=== PATIENT | female | born 2000 | race Caucasian/White ===

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

== ENCOUNTER 2019-09-27 16:54 | Emergency (ER) | payer BC ==
[2019-09-27 17:01] VITALS: BP 126/68
== END 2019-09-27 18:07 | disposition left against medical advice (07) ==
LOC: ED 16:54
DX: N91.2 Amenorrhea, unspecified (principal); Z53.21 Procedure and treatment not carried out due to patient leaving prior to being seen by health care provider

== ENCOUNTER 2020-05-10 05:52 | Inpatient (IN) ==
[2020-05-10 06:24] LABS: Urine Appearance Turbid; Urine Bilirubin Negative (Negative); Urine Blood 3+ (Negative); Urine Color Yellow; Urine Glucose Negative (Negative); Urine Ketones Negative (Negative); Urine Nitrite Negative (Negative); Urine Protein 1+(30 mg/dL) (Negative); Urine Specific Gravity 1.009 (1.010-1.030); Urine Urobilinogen Negative (Negative)
[2020-05-10 06:32] LABS: Urine Bacteria 1+ (Absent); Urine Red Blood Cell 3+(>10/hpf) (Absent); Urine Squamous Epithelial Cell Present (Absent); Urine White Blood Cell 3+(>20/hpf) (Absent)
[2020-05-10] MEDS ORDERED: Lidocaine 1% MPF 5 ML VIAL ONE (06:56)
[2020-05-10] MEDS ORDERED: Lactated Ringers 1000 ml BAG 1,000 ML IV SCH (08:00)
[2020-05-10] MEDS ORDERED: Morphine 10 MG/ML VIAL (1 ml) IV ONE ×3 (08:57→19:28)
[2020-05-10] MEDS ORDERED: Promethazine INJ(RESTRICTED) 25 MG/ML 1 ml VIAL IV ONE ×2 (09:03→19:29)
[2020-05-11 08:10] LABS: Hematocrit 35 % (35-47); Mean Corpuscular HGB Conc 35 g/dL (31-36); Mean Corpuscular Hemoglobin 33 pg (27-31); Mean Corpuscular Volume 94 fL (80-97); Mean Platelet Volume 9.8 fL (7.4-10.4); Platelet Count 249 10^3/uL (150-450); Red Blood Count 3.68 10^6 /uL (3.70-4.87); Red Cell Distribution Width 13 % (10-15); White Blood Count 20.1 10^3/uL (3.5-10.8)
[2020-05-11] MEDS ORDERED: OBEPIDURAL 0 ML EPIDURAL ONE (08:30)
[2020-05-11 08:54] LABS: ABS Basophils 0.1 10^3/ul (0-0.2); ABS Lymphocytes 2.5 10^3/ul (1.0-4.8); ABS Monocytes 1.2 10^3/ul (0-0.8); ABS Neutrophils 16.2 10^3/ul (1.5-7.7); Eosinophil % 0.1 %; Lymphocyte % 12.6 %; Nucleated Red Blood Cells % 0.1
[2020-05-11] MEDS ORDERED: OBEPIDURAL 250 ML EPIDURAL ONE (09:06)
[2020-05-11] MEDS ORDERED: Sodium Citrate/Citric Acid LIQ 15 ML UDC PO PRN (09:16)
[2020-05-11] MEDS ORDERED: Lactated Ringers 1000 ml BAG 500 ML IV PRN ×2 (09:16)
[2020-05-11] MEDS ORDERED: Lactated Ringers 1000 ml BAG 1,000 ML IV ONE (09:16)
[2020-05-11] MEDS ORDERED: Phenylephrine 40 mcg/mL 10mL (400mcg) SYRINGE IV PUSH PRN ×2 (09:16)
[2020-05-11] MEDS ORDERED: OBEPIDURAL 250 ML EPIDURAL SCH (10:00)
[2020-05-11] MEDS ORDERED: Lactated Ringers 1000 ml BAG 1,000 ML IV SCH ×2 (10:00)
[2020-05-11] MEDS ORDERED: Lidocaine 1% MPF 5 ML VIAL ONE (13:47)
[2020-05-11] MEDS ORDERED: Oxytocin in LR 0 UNITS/0 ML BAG IVPB ONE (20:46)
[2020-05-11] MEDS ORDERED: Dibucaine 1% OINT 28.35 GM TUBE PR PRN (21:30)
[2020-05-11] MEDS ORDERED: Witch Hazel PAD JAR TOPICAL PRN (21:30)
[2020-05-11] MEDS ORDERED: Glycerin ADULT 2.4 gm SUPP PR PRN (21:30)
[2020-05-12 07:09] LABS: Hematocrit 32 % (35-47); Hemoglobin 11.2 g/dL (12.0-16.0); Mean Corpuscular HGB Conc 35 g/dL (31-36); Mean Corpuscular Hemoglobin 33 pg (27-31); Mean Corpuscular Volume 93 fL (80-97); Mean Platelet Volume 9.4 fL (7.4-10.4); Platelet Count 264 10^3/uL (150-450); Red Blood Count 3.43 10^6 /uL (3.70-4.87); Red Cell Distribution Width 13 % (10-15)
[2020-05-12 09:05] LABS: ABS Basophils 0.1 10^3/ul (0-0.2); ABS Lymphocytes 2.3 10^3/ul (1.0-4.8); ABS Monocytes 1.1 10^3/ul (0-0.8); ABS Neutrophils 24.6 10^3/ul (1.5-7.7); Eosinophil % 0.1 %; Lymphocyte % 8.1 %
[2020-05-12] MEDS ORDERED: Lidocaine 1% VIAL 10 MG/ML VIAL ONE (19:07)
[2020-05-13 07:44] VITALS: BP 120/65
== END 2020-05-13 18:00 | disposition home or self-care (01) | DRG 560 ==
LOC: MCHOBOUT 05:52 → MCHOB 05-11 07:17
PROVIDERS: ADMIT Advanced Practice Midwife; ATTEND Midwife

== ENCOUNTER 2022-10-25 15:29 | Inpatient (IN) ==
[2022-10-25] MEDS ORDERED: Buffered Lidocaine 1% SYRIN 1 ml INTRADERM ONE (15:58)
[2022-10-25] MEDS ORDERED: Lactated Ringers 1000 ml BAG 1,000 ML IV ONE ×2 (15:58→18:03)
[2022-10-25] MEDS ORDERED: Lactated Ringers 1000 ml BAG 1,000 ML IV SCH ×3 (16:00→22:00)
[2022-10-25 16:43] LABS: ABS Basophils 0.1 10^3/ul (0-0.2); ABS Eosinophils 0.1 10^3/ul (0-0.6); ABS Lymphocytes 3.1 10^3/ul (1.0-4.8); ABS Monocytes 0.7 10^3/ul (0-0.8); ABS Neutrophils 9.5 10^3/ul (1.5-7.7); Eosinophil % 0.4 %; Hematocrit 33 % (35-47); Lymphocyte % 23.2 %; Mean Corpuscular HGB Conc 34 g/dL (31-36); Mean Corpuscular Hemoglobin 31 pg (27-31); Mean Corpuscular Volume 93 fL (80-97); Mean Platelet Volume 9.3 fL (7.4-10.4); Nucleated Red Blood Cells % 0.1; Platelet Count 359 10^3/uL (150-450); Red Blood Count 3.51 10^6 /uL (3.70-4.87); Red Cell Distribution Width 15 % (10-15); White Blood Count 13.5 10^3/uL (3.5-10.8)
[2022-10-25 17:08] LABS: Urine Benzodiazepine Screen None Detected (None Detect); Urine Cannabinoids Screen Presumptive Positive (None Detect); Urine Opiates Screen None Detected (None Detect)
[2022-10-25] MEDS ORDERED: EPINEPHrine SULFITE FREE 1 MG/ML ONE (17:29)
[2022-10-25] MEDS ORDERED: Lidocaine 1% VIAL 10 MG/ML VIAL 30 ML ONE (17:29)
[2022-10-25] MEDS ORDERED: OBEPIDURAL (200 ML) 200 ML EPIDURAL ONE (17:30)
[2022-10-25] MEDS ORDERED: Bupivacaine 0.25% SDV PF 10 ML VIAL INJ ONE (17:31)
[2022-10-25] MEDS ORDERED: Sodium Citrate/Citric Acid LIQ 15 ML UDC PO PRN (18:03)
[2022-10-25] MEDS ORDERED: Lactated Ringers 1000 ml BAG 500 ML IV PRN ×2 (18:03)
[2022-10-25] MEDS ORDERED: Phenylephrine 40 mcg/mL 10mL (400mcg) SYRINGE IV PUSH PRN ×2 (18:03)
[2022-10-25] MEDS ORDERED: OBEPIDURAL (200 ML) 200 ML EPIDURAL SCH (19:00)
[2022-10-25 19:57] LABS: Urine Appearance Clear; Urine Bilirubin Negative (Negative); Urine Blood Negative (Negative); Urine Color Yellow; Urine Glucose Negative (Negative); Urine Ketones 1+ (Negative); Urine Nitrite Negative (Negative); Urine Protein 1+(30 mg/dL) (Negative); Urine Specific Gravity 1.016 (1.002-1.030); Urine Urobilinogen Negative (Negative)
[2022-10-25 20:10] LABS: Urine Bacteria Absent (Absent); Urine Red Blood Cell Trace(0-2/hpf) (Absent); Urine Squamous Epithelial Cell Present (Absent); Urine White Blood Cell Absent (Absent)
[2022-10-25] MEDS ORDERED: Witch Hazel PAD JAR TOPICAL PRN (21:18)
[2022-10-25] MEDS ORDERED: Dibucaine 1% OINT 28.35 GM TUBE PR PRN (21:18)
[2022-10-26 07:27] LABS: ABS Basophils 0.1 10^3/ul (0-0.2); ABS Eosinophils 0.1 10^3/ul (0-0.6); ABS Lymphocytes 3.1 10^3/ul (1.0-4.8); ABS Neutrophils 12.7 10^3/ul (1.5-7.7); Eosinophil % 0.3 %; Hematocrit 32 % (35-47); Hemoglobin 10.5 g/dL (12.0-16.0); Mean Corpuscular HGB Conc 33 g/dL (31-36); Mean Corpuscular Hemoglobin 31 pg (27-31); Mean Corpuscular Volume 94 fL (80-97); Mean Platelet Volume 9.1 fL (7.4-10.4); Platelet Count 325 10^3/uL (150-450); Red Blood Count 3.39 10^6 /uL (3.70-4.87); Red Cell Distribution Width 14 % (10-15)
[2022-10-26 20:17] VITALS: BP 116/55
== END 2022-10-26 22:20 | disposition home or self-care (01) | DRG 560 ==
LOC: MCHOBOUT 15:29 → MCHOB 15:57
PROVIDERS: ADMIT Registered Nurse; ATTEND Registered Nurse